=== PATIENT | male | born 1995 | race American Indian/Alaskan Native ===

== ENCOUNTER 2018-07-11 17:10 | Emergency (ER) | payer SELFPAY ==
[2018-07-11] MEDS ORDERED: Lidocaine 1% 30 ML SDV INJECT ONE (17:32)
[2018-07-11] MEDS ORDERED: Mupirocin Oint 22 GM Tube TOP ONE (17:32)
--- NOTE | 2018-07-11 17:34 | EDM.PDOC ---
ED HPI GENERAL MEDICAL PROBLEM - General Chief Complaint: Skin Complaint Stated Complaint: BOILS Time Seen by Provider: 07/11/18 17:26 Source of Information: Reports: Patient, RN, RN Notes Reviewed History Limitations: Reports: No Limitations - History of Present Illness INITIAL COMMENTS - FREE TEXT/NARRATIVE: Patient presents to ER with complaint of "boils on my body". States he has one on the left side of abdomen and one on the left anterior thigh. States he has never had sores before. He has had fever and chills. No chest pain, shortness of breath, nausea, vomiting or diarrhea. Onset: Gradual Duration: Getting Worse Location: Reports: Abdomen, Other (thigh) Quality: Reports: Ache Severity: Moderate Improves with: Reports: None Worsens with: Reports: None Associated Symptoms: Reports: No Other Symptoms Left Abdominal Pain Score (Numeric/FACES): 8 - Related Data Allergies Allergy/AdvReac Type Severity Reaction Status Date / Time No Known Allergies Allergy Verified 07/13/18 20:38 Home Meds: Home Meds hydrOXYzine HCl [Atarax] 50 mg PO BID PRN 07/11/18 [History] Past Medical History - Past Health History Medical/Surgical History: Denies Medical/Surgical History Social & Family History - Tobacco Use Smoking Status *Q: Never Smoker Second Hand Smoke Exposure: Yes - Recreational Drug Use Recreational Drug Use: Yes Drug Use in Last 12 Months: Yes Recreational Drug Type: Reports: Marijuana/Hashish ED ROS GENERAL - Review of Systems Review Of Systems: ROS reveals no pertinent complaints other than HPI. ED EXAM, SKIN/RASH Exam: See Below Exam Limited By: No Limitations General Appearance: Alert, WD/WN, No Apparent Distress Eye Exam: Bilateral Eye: EOMI, Normal Inspection, PERRL Ears: Normal External Exam, Normal Canal, Hearing Grossly Normal, Normal TMs Nose: Normal Inspection, Normal Mucosa, No Blood Throat/Mouth: Normal Inspection, Normal Lips, Normal Teeth, Normal Gums, Normal Oropharynx, Normal Voice, No Airway Compromise Head: Atraumatic, Normocephalic Neck: Normal Inspection, Supple, Non-Tender, Full Range of Motion Respiratory/Chest: No Respiratory Distress, Lungs Clear, Normal Breath Sounds, No Accessory Muscle Use, Chest Non-Tender GI/Abdominal: Normal Bowel Sounds, Soft, Non-Tender, No Organomegaly, No Distention, No Abnormal Bruit, No Mass (Male) Exam: Deferred Rectal (Males) Exam: Deferred Back Exam: Normal Inspection, Full Range of Motion, NT Extremities: Normal Inspection, Normal Range of Motion, Non-Tender, No Pedal Edema, Normal Capillary Refill Neurological: Alert, Oriented, CN II-XII Intact, Normal Cognition, Normal Gait, Normal Reflexes, No Motor/Sensory Deficits Psychiatric: Normal Affect, Normal Mood Skin: Other (A 3x3 sore on left thigh. A 2x3 on left side of abdomen that is draining/eschar.) Lymphatic: No Adenopathy ED SKIN PROCEDURES - I&D Site: Left lower abdomen, left anterior thigh Skin Prep: Isopropyl Alcohol (Alcohol) Local Anesthesia: Lidocaine: 1% Plain Local Anesthetic Volume: 5cc Area Incised With: 11 Blade, Needle Drainage: Purulent, Bloody, Moderate Amount Probed to Break Up Loculations: Yes Packed With: 1/4 in. Iodoform Sterile Dressinx4(s) Complications: No Course - Vital Signs Last Recorded V/S: Last Vital Signs Temp 98.3 F 07/11/18 17:12 Pulse 94 07/11/18 17:12 Resp 18 07/11/18 17:12 BP 144/89 H 07/11/18 17:12 Pulse Ox 100 07/11/18 17:12 - Orders/Labs/Meds Meds: Medications Discontinued Medications Generic Name Dose Route Start Last Admin Trade Name Juancho PRN Reason Stop Dose Admin Lidocaine HCl 30 ml 07/11/18 17:32 07/11/18 18:12 Xylocaine-Mpf 1% INJECT 07/11/18 17:33 30 ml ONETIME ONE Administration Mupirocin 1 gm 07/11/18 17:32 07/11/18 18:11 Bactroban Oint TOP 07/11/18 17:33 1 gm ONETIME ONE Administration Departure - Departure Time of Disposition: 18:10 Disposition: Home, Self-Care 01 Condition: Fair Clinical Impression: Abscess - Discharge Information *PRESCRIPTION DRUG MONITORING PROGRAM REVIEWED*: No *COPY OF PRESCRIPTION DRUG MONITORING REPORT IN PATIENT CARLINE: No Instructions: Skin Abscess, [id number], Incision and Drainage, Care After Referrals: PCP,None [Primary Care Provider] - Forms: ED Department Discharge Additional Instructions: Return to the ER tomorrow to have wound rechecked and repacked RX: Bactrim Use Bactroban in the nares 4 times daily Follow up at the clinic on Saturday.
== END 2018-07-11 18:14 | disposition home or self-care (01) ==
LOC: DL.ED 17:10
DX: L02.416 Cutaneous abscess of left lower limb (principal); L02.211 Cutaneous abscess of abdominal wall; Z77.22 Contact with and (suspected) exposure to environmental tobacco smoke (acute) (chronic)
CPT/HCPCS: 10060; 87070; 87077; 87186; 99282; A9270; J2001

== ENCOUNTER 2018-07-13 20:12 | Emergency (ER) | payer MEDICAID, OTHER ==
[2018-07-13] MEDS ORDERED: Sulfamethoxazole/Trimethoprim 800-160 MG Tab PO ONE (21:37)
--- NOTE | 2018-07-13 21:42 | EDM.PDOC ---
ED HPI GENERAL MEDICAL PROBLEM - General Chief Complaint: Wound Recheck Stated Complaint: CHECK GAUGE Time Seen by Provider: 07/13/18 21:20 Source of Information: Reports: Patient History Limitations: Reports: No Limitations - History of Present Illness INITIAL COMMENTS - FREE TEXT/NARRATIVE: This 22 yo male patient reports to the ED to have his wounds rechecked and redressed. The patient was seen in the ED 2 days ago and had 2 abscesses incised and drained. The patient reports he lost his script and has not been taking any antibiotics. Culture results demonstrated the wound was infected with MRSA. Onset: Today Duration: Constant Location: Reports: Abdomen, Lower Extremity, Left Quality: Reports: Ache, Dull Severity: Moderate Improves with: Reports: None Worsens with: Reports: None Context: Reports: Other Associated Symptoms: Reports: No Other Symptoms Left Abdomen Pain Score (Numeric/FACES): 7 Left Thigh Pain Score (Numeric/FACES): 7 - Related Data Allergies Allergy/AdvReac Type Severity Reaction Status Date / Time No Known Allergies Allergy Verified 07/13/18 20:38 Home Meds: Home Meds hydrOXYzine HCl [Atarax] 50 mg PO BID PRN 07/11/18 [History] Past Medical History - Past Health History Medical/Surgical History: Denies Medical/Surgical History Social & Family History - Tobacco Use Smoking Status *Q: Never Smoker - Caffeine Use Caffeine Use: Reports: Soda - Recreational Drug Use Recreational Drug Use: Yes Recreational Drug Type: Reports: Marijuana/Hashish ED ROS GENERAL - Review of Systems Review Of Systems: ROS reveals no pertinent complaints other than HPI. ED EXAM, SKIN/RASH Exam: See Below Exam Limited By: No Limitations General Appearance: Alert, WD/WN, No Apparent Distress Eye Exam: Bilateral Eye: EOMI, Normal Inspection, PERRL Ears: Normal External Exam, Normal Canal, Hearing Grossly Normal, Normal TMs Nose: Normal Inspection, Normal Mucosa, No Blood Throat/Mouth: Normal Inspection, Normal Lips, Normal Teeth, Normal Gums, Normal Oropharynx, Normal Voice, No Airway Compromise Head: Atraumatic, Normocephalic Neck: Normal Inspection, Supple, Non-Tender, Full Range of Motion Respiratory/Chest: No Respiratory Distress, Lungs Clear, Normal Breath Sounds, No Accessory Muscle Use, Chest Non-Tender Cardiovascular: Normal Peripheral Pulses, Regular Rate, Rhythm, No Edema, No Gallop, No JVD, No Murmur, No Rub GI/Abdominal: Other (The patient has an abscess that was drained in the left lower abdomen. The wound appears to be well healing. The intial packing has been pushed out of the wound with good signs of healing. The wound was cleaned and redressed while in the ED. ) (Male) Exam: Deferred Rectal (Males) Exam: Deferred Back Exam: Normal Inspection, Full Range of Motion, NT Extremities: Other (The patient also had an abscess to his left upper thigh. There was no evidence of active drainage from the wound. The wound was also cleansed and rebandaged. ) Neurological: Alert, Oriented, CN II-XII Intact, Normal Cognition, Normal Gait, Normal Reflexes, No Motor/Sensory Deficits Psychiatric: Normal Affect, Normal Mood Skin: Other (see above) Location, Skin: Abdomen (Left lower abdomen (see above)), Lower Extremity, Left (Left upper thigh (see above)) Associated features: Tenderness, Swelling Lymphatic: No Adenopathy Course - Vital Signs Last Recorded V/S: Last Vital Signs Temp 36.9 C 07/13/18 20:39 Pulse 110 H 07/13/18 20:39 Resp 16 07/13/18 20:39 BP 134/95 H 07/13/18 20:39 Pulse Ox 100 07/13/18 20:39 - Orders/Labs/Meds Meds: Medications Discontinued Medications Generic Name Dose Route Start Last Admin Trade Name Freq PRN Reason Stop Dose Admin Trimethoprim/Sulfamethoxazole 1 tab 07/13/18 21:37 Septra Ds PO 07/13/18 21:38 ONETIME ONE Departure - Departure Time of Disposition: 21:39 Disposition: Home, Self-Care 01 Condition: Fair Clinical Impression: Abdominal abscess, Thigh abscess, MRSA (methicillin resistant staph aureus) culture positive - Discharge Information *PRESCRIPTION DRUG MONITORING PROGRAM REVIEWED*: Not Applicable *COPY OF PRESCRIPTION DRUG MONITORING REPORT IN PATIENT CARLINE: Not Applicable Instructions: Skin Abscess, How to Change Your Dressing, [id number], MRSA FAQs - QUINTEROS Forms: ED Department Discharge Care Plan Goals: The patient was advised of the examination and previous culture results during the visit. The patients bandages were changed and wounds were cleansed. The patient was given an oral dose of Bactrim while in the ED (as he lost his previous script). The patient was discharged with a script for Bactrim DS to take 1 by mouth 2 times per day for 10 days. The patient should follow-up with his primary care facility this week for continued evaluation and further management. If the patient has any additional symptoms or concerns, the patient should either visit his primary care facility or return to the emergency department.
== END 2018-07-13 21:50 | disposition home or self-care (01) ==
LOC: DL.ED 20:12
DX: Z48.817 Encounter for surgical aftercare following surgery on the skin and subcutaneous tissue (principal); B95.62 Methicillin resistant Staphylococcus aureus infection as the cause of diseases classified elsewhere
CPT/HCPCS: 99282; A9270

== ENCOUNTER 2019-02-17 20:39 | Emergency (ER) | payer SELFPAY ==
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
== END 2019-02-18 01:45 | disposition left against medical advice (07) ==
LOC: DL.ED 20:39
DX: S62.396A Other fracture of fifth metacarpal bone, right hand, initial encounter for closed fracture (principal); F17.210 Nicotine dependence, cigarettes, uncomplicated; W23.0XXA Caught, crushed, jammed, or pinched between moving objects, initial encounter
CPT/HCPCS: 73130-RT; 99283-25

== ENCOUNTER 2019-07-04 03:20 | Emergency (ER) | payer SELFPAY ==
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
[2019-07-04 05:48] LABS: ANION GAP 14.7; CHLORIDE,CL 102 mmol/L (101-111); SODIUM,NA 137 mmol/L (135-145)
[2019-07-04] MEDS ORDERED: Lidocaine 1% 30 ML SDV INJECT ONE (05:59)
[2019-07-04] MEDS ORDERED: Bacitracin Oint 1 GM U/D Packet TOP ONE (05:59)
== END 2019-07-04 06:30 ==
LOC: DL.ED 03:20
DX: S61.215A Laceration without foreign body of left ring finger without damage to nail, initial encounter (principal); S61.217A Laceration without foreign body of left little finger without damage to nail, initial encounter; M21.241 Flexion deformity, right finger joints; F10.129 Alcohol abuse with intoxication, unspecified; Y90.7 Blood alcohol level of 200-239 mg/100 ml; W26.8XXA Contact with other sharp object(s), not elsewhere classified, initial encounter
CPT/HCPCS: 12001; 36415; 73140; 80053; 80307; 85025; 99282; 99283; J2001

== ENCOUNTER 2019-08-30 16:41 | Emergency (ER) | payer SELFPAY ==
[2019-08-30] MEDS ORDERED: cefTRIAXone 500 MG Vial IM ONE (17:25)
[2019-08-30] MEDS ORDERED: Azithromycin 250 MG Tab PO ONE (17:33)
--- NOTE | 2019-08-30 18:01 | EDM.PDOC ---
ED HPI GENERAL MEDICAL PROBLEM - General Chief Complaint: Genitourinary Problem Stated Complaint: AMBULANCE Time Seen by Provider: 08/30/19 17:15 Source of Information: Reports: Patient, RN, RN Notes Reviewed History Limitations: Reports: No Limitations - History of Present Illness INITIAL COMMENTS - FREE TEXT/NARRATIVE: Patient presents to ER with complaint of sores to the head of the penis, burning with urination, pain, purulent discharge that is pink-tinged with blood at times. Patient states he did not practice safe sex and has had 2 or more partners in the last week. Patient states symptoms began yesterday and have progressively gotten worse. Patient denies fever but admits to chills. Denies nausea, vomiting, diarrhea. Onset: Gradual Penis Pain Score (Numeric/FACES): 8 - Related Data Allergies Allergy/AdvReac Type Severity Reaction Status Date / Time No Known Allergies Allergy Verified 08/30/19 17:04 Home Meds: Home Meds . [No Known Home Meds] 02/17/19 [History] Past Medical History - Past Health History Medical/Surgical History: Denies Medical/Surgical History HEENT History: Reports: None Cardiovascular History: Reports: None Respiratory History: Reports: None Gastrointestinal History: Reports: None Genitourinary History: Reports: STD Musculoskeletal History: Reports: None Neurological History: Reports: None Psychiatric History: Reports: Anxiety, Other (See Below) Other Psychiatric History: Sleep disorder Endocrine/Metabolic History: Reports: None Hematologic History: Reports: None Immunologic History: Reports: None Oncologic (Cancer) History: Reports: None Dermatologic History: Reports: None - Infectious Disease History Infectious Disease History: Reports: Chicken Pox, MRSA, Other (See Below) Other Infectious Disease History: STD - Past Surgical History Head Surgeries/Procedures: Reports: None Respiratory Surgical History: Reports: None Male Surgical History: Reports: None Musculoskeletal Surgical History: Reports: Other (See Below) Other Musculoskeletal Surgeries/Procedures:: tendon repair to R) forearm Social & Family History - Family History Family Medical History: Noncontributory - Tobacco Use Smoking Status *Q: Current Every Day Smoker Years of Tobacco use: 10 Packs/Tins Daily: 0.5 - Caffeine Use Caffeine Use: Reports: Coffee, Soda, Tea - Recreational Drug Use Recreational Drug Use: Yes Recreational Drug Type: Reports: Marijuana/Hashish ED ROS GENERAL - Review of Systems Review Of Systems: Comprehensive ROS is negative, except as noted in HPI. ED EXAM, RENAL/ - Physical Exam Exam: See Below Exam Limited By: No Limitations General Appearance: Alert, WD/WN, Lethargic, Moderate Distress Eye Exam: Bilateral Eye: EOMI, Normal Inspection Ears: Normal External Exam, Hearing Grossly Normal Nose: Normal Inspection Throat/Mouth: Normal Inspection, Normal Voice, No Airway Compromise Head: Atraumatic, Normocephalic Neck: Normal Inspection, Supple, Non-Tender, Full Range of Motion Respiratory/Chest: No Respiratory Distress, Lungs Clear, Normal Breath Sounds, No Accessory Muscle Use, Chest Non-Tender Cardiovascular: Normal Peripheral Pulses, Regular Rate, Rhythm, No Edema, No Gallop, No JVD, No Murmur, No Rub GI/Abdominal: Normal Bowel Sounds, Soft, Non-Tender, No Organomegaly, No Distention, No Abnormal Bruit, No Mass (Male) Exam: Circumcised, Penile Lesions (Dark red ulceration around the head of the penis, urethra opening), Rash (small vesicles on the shaft of the penis proximal), Urethral Discharge (purulent, pink tinged) Rectal (Males) Exam: Deferred Back Exam: Normal Inspection, Full Range of Motion, NT Extremities: Normal Inspection, Normal Range of Motion, Non-Tender, Normal Capillary Refill, No Pedal Edema Neurological: Alert, Oriented, CN II-XII Intact, Normal Cognition, Normal Gait, Normal Reflexes, No Motor/Sensory Deficits Psychiatric: Anxious Skin Exam: Warm, Dry, Intact, Normal Color, No Rash, Other (See genital exam) Lymphatic: No Adenopathy Course - Vital Signs Last Recorded V/S: Last Vital Signs Temp 98.6 F 08/30/19 17:00 Pulse 88 08/30/19 17:00 Resp 16 08/30/19 17:00 BP 120/75 08/30/19 17:00 Pulse Ox 98 08/30/19 17:00 - Orders/Labs/Meds Orders: Active Orders 24 hr Category Date Time Status CHLAMYDIA AND GONORRHEA BY TMA Stat Lab 08/30/19 17:24 Received CULTURE URINE [RM] Stat Lab 08/30/19 16:58 Received UA W/MICROSCOPIC [URIN] Stat Lab 08/30/19 16:58 Results Labs: Laboratory Tests 08/30/19 08/30/19 Range/Units 16:58 16:58 Urine Color Amaya (YELLOW) Urine Appearance Slightly cloudy (CLEAR) Urine pH 6.0 (5.0-9.0) Ur Specific [place] >= 1.030 (1.005-1.030) Urine Protein 30 H (NEGATIVE) Urine Glucose (UA) Negative (NEGATIVE) Urine Ketones Negative (NEGATIVE) Urine Occult Blood Small H (NEGATIVE) Urine Nitrite Negative (NEGATIVE) Urine Bilirubin Small H (NEGATIVE) Urine Urobilinogen 4.0 H (0.2-1.0) mg/dL Ur Leukocyte Esterase Moderate H (NEGATIVE) Urine Opiates Screen Negative (NEGATIVE) Ur Oxycodone Screen Negative (NEGATIVE) Urine Methadone Screen Negative (NEGATIVE) Ur Barbiturates Screen Negative (NEGATIVE) U Tricyclic Antidepress Negative (NEGATIVE) Ur Phencyclidine Scrn Negative (NEGATIVE) Ur Amphetamine Screen Positive H (NEGATIVE) U Methamphetamines Scrn Positive H (NEGATIVE) Urine MDMA Screen Positive H (NEGATIVE) U Benzodiazepines Scrn Negative (NEGATIVE) Urine Cocaine Screen Negative (NEGATIVE) U Marijuana (THC) Screen Positive H (NEGATIVE) Meds: Medications Discontinued Medications Generic Name Dose Route Start Last Admin Trade Name Freq PRN Reason Stop Dose Admin Azithromycin 1,000 mg 08/30/19 17:33 08/30/19 17:48 Zithromax PO 08/30/19 17:34 1,000 mg ONETIME ONE Administration Ceftriaxone Sodium 500 mg 08/30/19 17:25 08/30/19 17:48 Rocephin IM 08/30/19 17:26 500 mg ONETIME ONE Administration Departure - Departure Time of Disposition: 18:05 Disposition: Home, Self-Care 01 Condition: Fair Clinical Impression: STI (sexually transmitted infection), Abnormal penile discharge, with blood - Discharge Information *PRESCRIPTION DRUG MONITORING PROGRAM REVIEWED*: No *COPY OF PRESCRIPTION DRUG MONITORING REPORT IN PATIENT CARLINE: No Forms: ED Department Discharge Additional Instructions: NO SEX until discharge has cleared up and sores have healed Use condoms, practice protection with Sex Inform all sexual partners that they will need to be tested and treated for sexually transmitted infections Follow up at the clinic with your primary care facility if no improvement Sepsis Event Note - Evaluation Sepsis Screening Result: No Definite Risk - Focused Exam Vital Signs: Vital Signs Temp Pulse Resp BP Pulse Ox 08/30/19 17:00 98.6 F 88 16 120/75 98 Date Exam was Performed: 08/30/19 Time Exam was Performed: 18:03 - My Orders Last 24 Hours: My Active Orders 08/30/19 16:58 CULTURE URINE [RM] Stat UA W/MICROSCOPIC [URIN] Stat 08/30/19 17:24 CHLAMYDIA AND GONORRHEA BY TMA Stat - Assessment/Plan Last 24 Hours: My Active Orders 08/30/19 16:58 CULTURE URINE [RM] Stat UA W/MICROSCOPIC [URIN] Stat 08/30/19 17:24 CHLAMYDIA AND GONORRHEA BY TMA Stat
== END 2019-08-30 18:15 | disposition home or self-care (01) ==
LOC: DL.ED 16:41
DX: A64 Unspecified sexually transmitted disease (principal); F17.210 Nicotine dependence, cigarettes, uncomplicated
CPT/HCPCS: 80305; 81001; 87086; 87491; 87591; 96372; 99283; A9270; J0696

== ENCOUNTER 2023-03-14 14:54 | Emergency (ER) | payer SELFPAY | END 2023-03-14 16:08 | disposition home or self-care (01) | LOC: DL.ED 14:54 | DX: F10.920 Alcohol use, unspecified with intoxication, uncomplicated (principal); Y90.8 Blood alcohol level of 240 mg/100 ml or more | CPT/HCPCS: 36415; 80307; 99282; 99284 ==